=== PATIENT | male | born 1970 | race Caucasian/White ===

== ENCOUNTER → 2017-11-19 | Outpatient (CLI) | payer BC ==
[~2017-11-19] MED LIST: NAPR-1169 PO; OXYC1TAB3 PO
--- NOTE | 2017-11-19 17:53 | DIAGNOSTIC IMAGING REPORT ---
RIGHT ANKLE MRI HISTORY: RIGHT ANKLE PAIN TECHNIQUE: Multiplanar multisequence MRI of the right ankle was performed without the use of intravenous contrast. COMPARISON STUDY: Right ankle radiograph 10/05/2017. FINDINGS: There is a high-grade partial tear of the mid to distal peroneus brevis tendon just beyond the lateral malleolus. There are only a few fibers that remain intact. Approximate 90% of the fibers are torn. The peroneus longus tendon, flexor tendons, extensor tendons, and Achilles tendon are intact. Normal marrow signal intensity seen throughout the visualized osseous structures. No fracture or dislocation. Cartilage spaces are maintained. The plantar fascia is within normal limits. No significant joint effusion. The sinus tarsi is intact. Irregularity at the anterior talofibular ligament suggestive of a partial tear. This may be chronic. The remaining medial and lateral stabilizing ligaments are intact. Mild subcutaneous edema ankle. IMPRESSION: High-grade partial tear of the mid to distal peroneus brevis tendon just beyond the lateral malleolus with only a few intact fibers remaining. Electronically signed by: Hector De Guzman M.D. 11/19/2017 5:52 PM Dictated Date/Time: 11/19/2017 5:45 PM
== END | disposition home or self-care (01) ==
LOC: C.MRIBC 16:26
PROVIDERS: ATTEND Orthopaedic Surgery
DX: S93.491A Sprain of other ligament of right ankle, initial encounter (principal); X58.XXXA Exposure to other specified factors, initial encounter